=== PATIENT | female | born 2000 | race Caucasian/White ===

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

== ENCOUNTER 2021-04-02 12:33 | Emergency (ER) | payer OTHER ==
[~2021-04-02 12:33] MED LIST: ZOFRAN ODT 4 MG4 MG PO
== END 2021-04-02 13:19 | disposition home or self-care (01) ==
LOC: ER1 12:33
DX: U07.1 COVID-19 (principal); F17.200 Nicotine dependence, unspecified, uncomplicated
CPT/HCPCS: 99283; U0003

== ENCOUNTER → 2021-06-03 | Emergency (ER) | payer OTHER ==
[~2021-06-03] MED LIST changes: +MACROBID 100 M100 MG PO
== END | disposition home or self-care (01) ==
LOC: ER1 15:35
DX: M54.6 Pain in thoracic spine (principal); F17.200 Nicotine dependence, unspecified, uncomplicated
CPT/HCPCS: 72070; 72110; 81001; 84703; 87086; 99283

== ENCOUNTER 2021-07-11 12:47 | Emergency (ER) | payer OTHER ==
[2021-07-11] MEDS ORDERED: CYCLOBENZAPRINE10 MG PO (15:03)
[2021-07-11] MEDS ORDERED: NAPROSYN500 MG PO (15:03)
== END 2021-07-11 15:13 | disposition home or self-care (01) ==
LOC: ER1 12:47
DX: S39.012A Strain of muscle, fascia and tendon of lower back, initial encounter (principal); X58.XXXA Exposure to other specified factors, initial encounter
CPT/HCPCS: 96372; 99283; J1100; J1885